=== PATIENT | female | born 1955 | race Caucasian/White ===

== ENCOUNTER → 2019-10-19 16:31 | Outpatient (CLI) | payer OTHER, SELFPAY ==
[2019-10-19 17:18] LABS: Add Manual Diff / Slide Review NO; Basophils Absolute Auto 100 /uL (0-100); Basophils Percent Auto 1.8 % (0-2); Eosinophils Absolute Auto 300 /uL (0-450); Hematocrit 41.1 % (36-46); Hemoglobin 13.9 g/dL (12.0-16.0); Lymphocytes Absolute Auto 1400 /uL (1100-4500); Mean Corpuscular HGB Conc 33.7 % (30-36); Mean Corpuscular Hemoglobin 33.9 PG (26-34); Mean Corpuscular Volume 100.5 fL (80-100); Monocytes Absolute Auto 900 /uL (0-900); Monocytes Percent Auto 14.1 % (3-14); Neutrophils Absolute Auto 3700 /uL (1500-7000); Neutrophils Percent Auto 58.1 % (50-75); Platelet Count 329 X10^3/uL (150-400); Red Blood Cell Count 4.09 X10^6/uL (4.0-5.2); Red Cell Distribution Width 13.6 % (11.6-14.8); White Blood Cell Count 6.4 X10^3/uL (4.5-11.0)
[2019-10-19 17:40] LABS: Erythrocyte Sedimentation Rate 13 MM/HR (0-20)
[2019-10-19 17:48] LABS: Alanine Aminotransferase 25 IU/L (<35); Albumin 4.6 g/dL (3.5-5.0); Albumin Globulin Ratio 1.4 (1.0-2.8); Alkaline Phosphatase 49 U/L (38-126); Aspartate Aminotransferase 36 IU/L (14-36); BUN Creatinine Ratio 21.7 (6-22); Bilirubin Total 0.3 mg/dL (0.2-1.3); Blood Urea Nitrogen 13 mg/dL (7-17); Calcium 10.3 mg/dL (8.4-10.2); Carbon Dioxide 29 mmol/L (22-32); Chloride 100 mmol/L (98-107); Estimated Glomerular Filt Rate > 60.0 mL/min (>60); Globulin 3.3 g/dL (1.7-4.1); Glucose 99 mg/dL (80-110); HEMOLYSIS < 15 (0-50); Potassium 4.9 mmol/L (3.4-5.1); Sodium 139 mmol/L (137-145); Total Protein 7.9 g/dL (6.3-8.2)
[2019-10-19 18:18] LABS: Thyroid Stimulating Hormone 1.11 uIU/mL (0.47-4.68)
[2019-10-19 18:53] LABS: Folate 6.5 ng/mL (2.76-20.0)
== END ==
PROVIDERS: PCP Family Medicine; Visit Provider Family Medicine
DX: M13.0 Polyarthritis, unspecified (principal)
CPT/HCPCS: 36415; 80053; 82746; 84443; 85025; 85651

== ENCOUNTER → 2019-10-27 08:35 | Outpatient (CLI) | payer OTHER, SELFPAY ==
[2019-10-27 09:48] LABS: Add Manual Diff / Slide Review NO; Basophils Absolute Auto 200 /uL (0-100); Basophils Percent Auto 2.5 % (0-2); Eosinophils Absolute Auto 300 /uL (0-450); Eosinophils Percent Auto 5.3 % (2-4); Hematocrit 41.2 % (36-46); Lymphocytes Absolute Auto 1500 /uL (1100-4500); Lymphocytes Percent Auto 24.4 % (25-40); Mean Corpuscular HGB Conc 34.1 % (30-36); Mean Corpuscular Volume 99.8 fL (80-100); Monocytes Absolute Auto 900 /uL (0-900); Monocytes Percent Auto 14.8 % (3-14); Neutrophils Absolute Auto 3300 /uL (1500-7000); Platelet Count 333 X10^3/uL (150-400); Red Blood Cell Count 4.12 X10^6/uL (4.0-5.2); Red Cell Distribution Width 13.7 % (11.6-14.8); White Blood Cell Count 6.3 X10^3/uL (4.5-11.0)
[2019-10-27 11:28] LABS: Folate > 20.0 ng/mL (2.76-20.0); Vitamin B12 422 pg/mL (239-931)
== END ==
PROVIDERS: PCP Family Medicine; Referring Provider Family Medicine; Visit Provider Family Medicine
DX: F10.20 Alcohol dependence, uncomplicated (principal)
CPT/HCPCS: 36415; 82607; 82746; 85025

== ENCOUNTER → 2019-11-17 08:27 | Outpatient (CLI) | payer OTHER, SELFPAY ==
[2019-11-17 09:39] LABS: Add Manual Diff / Slide Review NO; Basophils Absolute Auto 100 /uL (0-100); Basophils Percent Auto 2.4 % (0-2); Eosinophils Absolute Auto 400 /uL (0-450); Eosinophils Percent Auto 6.7 % (2-4); Hematocrit 41.7 % (36-46); Hemoglobin 14.2 g/dL (12.0-16.0); Lymphocytes Absolute Auto 1400 /uL (1100-4500); Lymphocytes Percent Auto 23.4 % (25-40); Mean Corpuscular Hemoglobin 34.4 PG (26-34); Mean Corpuscular Volume 101.1 fL (80-100); Monocytes Absolute Auto 700 /uL (0-900); Monocytes Percent Auto 11.7 % (3-14); Neutrophils Absolute Auto 3300 /uL (1500-7000); Neutrophils Percent Auto 55.8 % (50-75); Platelet Count 311 X10^3/uL (150-400); Red Blood Cell Count 4.13 X10^6/uL (4.0-5.2); Red Cell Distribution Width 13.1 % (11.6-14.8); White Blood Cell Count 5.9 X10^3/uL (4.5-11.0)
[2019-11-17 10:07] LABS: Alanine Aminotransferase 25 IU/L (<35); Albumin Globulin Ratio 1.4 (1.0-2.8); Alkaline Phosphatase 46 U/L (38-126); Aspartate Aminotransferase 39 IU/L (14-36); Bilirubin Total 0.6 mg/dL (0.2-1.3); Blood Urea Nitrogen 9 mg/dL (7-17); Carbon Dioxide 29 mmol/L (22-32); Chloride 95 mmol/L (98-107); Estimated Glomerular Filt Rate > 60.0 mL/min (>60); Globulin 3.5 g/dL (1.7-4.1); Glucose 89 mg/dL (80-110); HEMOLYSIS < 15 (0-50); Phosphorous 3.1 mg/dL (2.8-4.1); Potassium 4.3 mmol/L (3.4-5.1); Sodium 135 mmol/L (137-145); Total Protein 8.5 g/dL (6.3-8.2)
[2019-11-19 15:23] LABS: Parathyroid Hormone Int 18 pg/mL (14-64)
[2019-11-22 12:59] LABS: Albumin 4.8 g/dL (3.8-4.8); Alpha 1 Globulin 0.3 g/dL (0.2-0.3); Alpha 2 Globulin 0.7 g/dL (0.5-0.9); Beta 1 Globulin 0.4 g/dL (0.4-0.6); Protein, Total 7.7 g/dL (6.1-8.1)
--- NOTE | 2019-12-15 11:54 | ONC.MSW ---
Description: New Referral Navigation Activity: Reviewed the referral for acuity, medical status and immediate needs. Forwarded to scheduling for next available new pt appt. time.
== END ==
PROVIDERS: PCP Family Medicine; Referring Provider Family Medicine; Visit Provider Family Medicine
DX: E83.52 Hypercalcemia (principal)
CPT/HCPCS: 36415; 80053; 83970; 84100; 84155; 84165; 85025

== ENCOUNTER → 2020-02-21 15:00 | Oncology outpatient (ONC) | payer OTHER, SELFPAY ==
--- NOTE | 2019-12-20 14:24 | ONC.CONS ---
History of Present Illness - Data of Consult Patient: new to practice Consult date: 12/20/19 Requesting Physician: Phyllis Yoo MD Primary Care Provider: Phyllis Yoo MD - Consult Narrative Reason for consult: Elevated Basophils Narrative: Mlila Cohen is a 63 year old female. 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 Her had full body rashes with pruritis and skin shedding. She has been on treatment with methotrexate 2.5 mg 3# weekly for the past 5 years. She is also getting light therapy. She said that the therapy has been effective. According to patient, annual check up in Sep 2019 showed WBC 6.4, H/H 13.9/41.1, MCV 100.5, PLT 329, absolute basophil 100. Repeat test on 10/27/2019 showed WBC 6.3, H/H 14/41.2, PLT 333, absolute basophil 200. Recent test on 11/17/2019 showed WBC 5.9, H/H 14.2/41.7, PLT 311, absolute basophil 100. noted basophis Clinically,s she said she feels great. She reports no fever, no chills, no shortness of breath, no chest pain, no n/v, and no diarrhea or constipation. Her weight has been stable. She has osteoarthritis. Her skin rashes are stable. She denies any headache. CC: Ashvin Aguirre MD Home Medications and Allergies Home Medications Medication Instructions Recorded Confirmed Type albuterol sulfate [Ventolin HFA] 2 puff INHALATION Q4-6H PRN 12/20/19 12/20/19 History beclomethasone dipropionate [Qvar 2 inh INHALATION BID 12/20/19 12/20/19 History RediHaler] benazepril 20 mg PO DAILY 12/20/19 12/20/19 History bupropion HCl [Wellbutrin XL] 150 mg PO QAM 12/20/19 12/20/19 History buspirone 30 mg BID 12/20/19 12/20/19 History diltiazem HCl 360 mg PO DAILY 12/20/19 12/20/19 History duloxetine [Cymbalta] 30 mg PO DAILY 12/20/19 12/20/19 History fexofenadine 180 mg PO DAILY 12/20/19 12/20/19 History folic acid 1 mg PO DAILY 12/20/19 12/20/19 History hydrochlorothiazide 12.5 mg PO DAILY 12/20/19 12/20/19 History hydrocortisone 1 applic TOPICAL BID PRN 12/20/19 12/20/19 History levothyroxine 88 mcg PO DAILY 12/20/19 12/20/19 History methotrexate sodium 7.5 mg PO QWEEK 12/20/19 12/20/19 History montelukast 10 mg PO DAILY 12/20/19 12/20/19 History olopatadine [Patanol] % OPHTHALMIC (EYE) 12/20/19 History ranitidine HCl 150 mg PO BID 12/20/19 12/20/19 History Allergies Allergy/AdvReac Type Severity Reaction Status Date / Time Aminoglycosides Allergy Intermediate Verified 12/20/19 15:12 gentamicin Allergy Intermediate Verified 12/20/19 15:12 Penicillins Allergy Intermediate Verified 12/20/19 15:12 pimecrolimus [From Elidel] Allergy Intermediate Verified 12/20/19 15:12 zolpidem [From Ambien] Allergy Intermediate Verified 12/20/19 15:12 Medical History - Medical, Surgical, Family History Medical History: Medical History (Last Updated 12/20/19 @ 15:06 by Ashvin Aguirre MD) Acid reflux Asthma Depression Hypothyroidism Surgical History: Surgical History (Last Updated 12/20/19 @ 15:07 by Ashvin Aguirre MD) H/O thyroidectomy H/O: hysterectomy Family History: Family History (Last Updated 12/20/19 @ 15:07 by Ashvin Aguirre MD) Other Adopted - Social History Smoking Status: Never smoker Substance Use Type: does not use Alcohol Intake: current (2-3 glass of wine at night) Review of Systems All systems PM: reviewed and no additional remarkable complaints except as stated (those mentioned in HPI.) Exam Vital signs: Last Vital Signs Temp 98.2 F 12/20/19 14:35 Pulse 69 12/20/19 14:35 Resp 18 12/20/19 14:35 BP 162/103 H 12/20/19 14:35 Pulse Ox 98 12/20/19 14:35 Narrative: ECOG 1 Vitals above reviewed Constitutional: WDWN, well nourished, and well groomed. NAD. Pleasant and cooperative. HEENT: NCAT, EOMI, PERRLA, anicteric sclera. Oral mucosa clean, no erythema, no ulcers noted on the oral mucosa, no enlargement of tonsils, and no pharynx secretions noted. Neck: Supple and symmetrical. No palpable thyromegaly or lymphadenopathy. No palpable masses. Respiratory: No use of accessory muscles, CTAB, no wheezes. Cardiovascular: RRR, S1 and S2 normal, no M/G/R. No edema of lower extremities. Abdomen: Soft, NTND, no palpable hepatosplenomegaly, no hernia. Lymphatic: no palpable palpable lymph nodes in the neck, axillae, or groins. Musculoskeletal: normal gait and station Skin: healing rashes noted. Neurological: CN II-XII grossly intact. No focal motor or sensory deficit. Psychiatric: Normal judgment and insight, AOx3, normal memory (recent and remote), normal mood and affect. 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 Clinically patient does not have any symptoms. Assessment: I explained to the patient that she has a very mild basophilia. Most of the absolute basophils have remained normal except on one occasion on October 27, 2019 when the absolute basophil was 200. Clinically patient does not have any symptoms for example enlarged lymph nodes, fever, or enlarged spleen. I explained to the patient that the mild basophil elevation probably reflect her possible allergic reactions. I do not think there are any clinical signs or symptoms to suggest underlying hematological malignancies especially leukemia. I talked with her that I will have her come back in about 3 months and will repeat the lab tests. She voiced understanding. Plan: RTC in 3 months, CBC, CMP, LDH
[2019-12-20 14:35] VITALS: BP 162/103; PULSE 69; RESP 18; TEMP 36.8; O2SAT 98
[2020-02-21 12:09] LABS: Add Manual Diff / Slide Review NO; Basophils Absolute Auto 0 /uL (0-100); Basophils Percent Auto 0.5 % (0-2); Eosinophils Absolute Auto 700 /uL (0-450); Eosinophils Percent Auto 10.3 % (2-4); Hematocrit 38.6 % (36-46); Hemoglobin 13.3 g/dL (12.0-16.0); Lymphocytes Absolute Auto 1300 /uL (1100-4500); Lymphocytes Percent Auto 19.8 % (25-40); Mean Corpuscular HGB Conc 34.5 % (30-36); Mean Corpuscular Hemoglobin 33.9 PG (26-34); Mean Corpuscular Volume 98.4 fL (80-100); Monocytes Absolute Auto 800 /uL (0-900); Monocytes Percent Auto 12.4 % (3-14); Neutrophils Absolute Auto 3800 /uL (1500-7000); Platelet Count 270 X10^3/uL (150-400); Red Blood Cell Count 3.93 X10^6/uL (4.0-5.2); Red Cell Distribution Width 12.9 % (11.6-14.8); White Blood Cell Count 6.6 X10^3/uL (4.5-11.0)
[2020-02-21 12:21] LABS: Alanine Aminotransferase 24 IU/L (<35); Albumin 4.6 g/dL (3.5-5.0); Albumin Globulin Ratio 1.4 (1.0-2.8); Alkaline Phosphatase 44 U/L (38-126); Aspartate Aminotransferase 35 IU/L (14-36); Bilirubin Total 0.5 mg/dL (0.2-1.3); Blood Urea Nitrogen 13 mg/dL (7-17); Calcium 9.6 mg/dL (8.4-10.2); Carbon Dioxide 27 mmol/L (22-32); Chloride 97 mmol/L (98-107); Estimated Glomerular Filt Rate > 60.0 mL/min (>60); Globulin 3.3 g/dL (1.7-4.1); Glucose 102 mg/dL (80-110); HEMOLYSIS < 15 (0-50); Lactate Dehydrogenase 479 U/L (313-618); Potassium 4.6 mmol/L (3.4-5.1); Sodium 133 mmol/L (137-145); Total Protein 7.9 g/dL (6.3-8.2)
--- NOTE | 2020-02-21 15:32 | P.PNONC_ITS ---
PN -Subjective Interval history: ID/CC: Milla is a 64-year-old female mild basophilia HPI: Milla Cohen is a 64 year old female. 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 Her had full body rashes with pruritis and skin shedding. She has been on treatment with methotrexate 2.5 mg 3# weekly for the past 5 years. She is also getting light therapy. She said that the therapy has been effective. According to patient, annual check up in Sep 2019 showed WBC 6.4, H/H 13.9/41.1, MCV 100.5, PLT 329, absolute basophil 100. Repeat test on 10/27/2019 showed WBC 6.3, H/H 14/41.2, PLT 333, absolute basophil 200. Recent test on 11/17/2019 showed WBC 5.9, H/H 14.2/41.7, PLT 311, absolute basophil 100. Thus, she was referred here for evaluation of basophilia. I saw the patient on 12/20/2019. Interval History: Since her previous visit, patient has been doing well without any new signs or symptoms. She said she did not have any new rashes. She did not have any wheezes or shortness of breath. She did not have any abdominal pain diarrhea or constipation. She presents here today for scheduled follow-up visit. - Patient Self-Reported Symptoms SR Skin issues: Dry skin SR Gastrointestinal issues: Heartburn - Additional ROS All systems PM: reviewed and no additional remarkable complaints except as stated Home Medications and Allergies Home Medications Medication Instructions Recorded Confirmed Type albuterol sulfate [Ventolin HFA] 2 puff INHALATION Q4-6H PRN 12/20/19 12/20/19 History beclomethasone dipropionate [Qvar 2 inh INHALATION BID 12/20/19 12/20/19 History RediHaler] benazepril 20 mg PO DAILY 12/20/19 12/20/19 History bupropion HCl [Wellbutrin XL] 150 mg PO QAM 12/20/19 12/20/19 History buspirone 30 mg BID 12/20/19 12/20/19 History diltiazem HCl 360 mg PO DAILY 12/20/19 12/20/19 History duloxetine [Cymbalta] 30 mg PO DAILY 12/20/19 12/20/19 History fexofenadine 180 mg PO DAILY 12/20/19 12/20/19 History folic acid 1 mg PO DAILY 12/20/19 12/20/19 History hydrochlorothiazide 12.5 mg PO DAILY 12/20/19 12/20/19 History hydrocortisone 1 applic TOPICAL BID PRN 12/20/19 12/20/19 History levothyroxine 88 mcg PO DAILY 12/20/19 12/20/19 History methotrexate sodium 7.5 mg PO QWEEK 12/20/19 12/20/19 History montelukast 10 mg PO DAILY 12/20/19 12/20/19 History olopatadine [Patanol] % OPHTHALMIC (EYE) 12/20/19 History ranitidine HCl 150 mg PO BID 12/20/19 12/20/19 History Allergies Allergy/AdvReac Type Severity Reaction Status Date / Time Aminoglycosides Allergy Intermediate Verified 12/20/19 15:12 gentamicin Allergy Intermediate Verified 12/20/19 15:12 Penicillins Allergy Intermediate Verified 12/20/19 15:12 pimecrolimus [From Elidel] Allergy Intermediate Verified 12/20/19 15:12 zolpidem [From Ambien] Allergy Intermediate Verified 12/20/19 15:12 Exam Vital signs: 02/21/20 15:44 Last Vital Signs Temp 98.2 F 12/20/19 14:35 Pulse 77 02/21/20 15:33 Resp 16 02/21/20 15:33 BP 164/112 H 02/21/20 15:33 Pulse Ox 99 02/21/20 15:33 Narrative: ECOG 1 Vitals above reviewed Constitutional: WDWN, well nourished, and well groomed. NAD. Pleasant and cooperative. HEENT: NCAT, EOMI, PERRLA, anicteric sclera. Respiratory: No use of accessory muscles, CTAB, no wheezes. Musculoskeletal: normal gait and station Skin: healing rashes noted. Neurological: CN II-XII grossly intact. No focal motor or sensory deficit. Psychiatric: Normal judgment and insight, AOx3, normal memory (recent and remote), normal mood and affect. Results - Labs Laboratory Last Values WBC 6.6 X10^3/uL (4.5-11.0) 02/21/20 11:58 RBC 3.93 X10^6/uL (4.0-5.2) L 02/21/20 11:58 Hgb 13.3 g/dL (12.0-16.0) 02/21/20 11:58 Hct 38.6 % (36-46) 02/21/20 11:58 MCV 98.4 fL (80-100) 02/21/20 11:58 MCH 33.9 PG (26-34) 02/21/20 11:58 MCHC 34.5 % (30-36) 02/21/20 11:58 RDW 12.9 % (11.6-14.8) 02/21/20 11:58 Plt Count 270 X10^3/uL (150-400) 02/21/20 11:58 Neut % (Auto) 57.0 % (50-75) 02/21/20 11:58 Lymph % (Auto) 19.8 % (25-40) L 02/21/20 11:58 [place] % (Auto) 12.4 % (3-14) 02/21/20 11:58 Eos % (Auto) 10.3 % (2-4) H 02/21/20 11:58 Baso % (Auto) 0.5 % (0-2) 02/21/20 11:58 Neut # (Auto) 3800 /uL (2644-7366) 02/21/20 11:58 Lymph # (Auto) 1300 /uL (4852-2630) 02/21/20 11:58 [place] # (Auto) 800 /uL (0-900) 02/21/20 11:58 Eos # (Auto) 700 /uL (0-450) H 02/21/20 11:58 Baso # (Auto) 0 /uL (0-100) 02/21/20 11:58 Sodium 133 mmol/L (137-145) L 02/21/20 11:58 Potassium 4.6 mmol/L (3.4-5.1) 02/21/20 11:58 Chloride 97 mmol/L (98-107) L 02/21/20 11:58 Carbon Dioxide 27 mmol/L (22-32) 02/21/20 11:58 BUN 13 mg/dL (7-17) 02/21/20 11:58 Creatinine 0.62 mg/dL (0.52-1.04) 02/21/20 11:58 Estimated GFR > 60.0 mL/min (>60) 02/21/20 11:58 BUN/Creatinine Ratio 21.0 (6-22) 02/21/20 11:58 Glucose 102 mg/dL (80-110) 02/21/20 11:58 Calcium 9.6 mg/dL (8.4-10.2) 02/21/20 11:58 Total Bilirubin 0.5 mg/dL (0.2-1.3) 02/21/20 11:58 AST 35 IU/L (14-36) 02/21/20 11:58 ALT 24 IU/L (<35) 02/21/20 11:58 Alkaline Phosphatase 44 U/L (38-126) 02/21/20 11:58 Lactate Dehydrogenase 479 U/L (313-618) 02/21/20 11:58 Total Protein 7.9 g/dL (6.3-8.2) 02/21/20 11:58 Albumin 4.6 g/dL (3.5-5.0) 02/21/20 11:58 Globulin 3.3 g/dL (1.7-4.1) 02/21/20 11:58 Albumin/Globulin Ratio 1.4 (1.0-2.8) 02/21/20 11:58 Assessment and Plan (1) Elevated basophil count Overview: 64-year-old female with dermatological problems currently on methotrexate was referred here for evaluation of mild basophilia. Clinically patient does not have any symptoms. Assessment: I reviewed the lab results from today. It showed that the white cell count 6.6, hemoglobin 13.3 with normal hematocrit 38.6 and normal platelet counts 270. In addition basophil count was 0. And the basophil percentage was 0.5%. Patient has an elevated eosinophils which probably reflects the allergy season. Patient has and normal LDH level of 479. I talked with her that I do not think she has any underlying hematological disorder. I talked with her that I will release her from our surface. If she has notices anything new, she needs to call us for follow-up visit. She voiced understanding. Plan: Patient will need to call for follow up visit if needed.
[2020-02-21 15:33] VITALS: BP 164/112; PULSE 77; RESP 16; O2SAT 99
== END ==
PROVIDERS: PCP Family Medicine; Referring Provider Family Medicine; Visit Provider Internal Medicine Hematology & Oncology
DX: D72.824 Basophilia (principal); L44.0 Pityriasis rubra pilaris
CPT/HCPCS: 36415; 80053; 83615; 85025; 99204; 99213; 99214

== ENCOUNTER → 2020-06-22 08:24 | Outpatient (CLI) | payer OTHER, SELFPAY ==
[2020-06-22 09:37] LABS: Add Manual Diff / Slide Review NO; Basophils Absolute Auto 100 /uL (0-100); Basophils Percent Auto 2.2 % (0-2); Eosinophils Absolute Auto 500 /uL (0-450); Eosinophils Percent Auto 8.7 % (2-4); Hematocrit 39.9 % (36-46); Hemoglobin 13.2 g/dL (12.0-16.0); Lymphocytes Absolute Auto 1200 /uL (1100-4500); Lymphocytes Percent Auto 22.1 % (25-40); Mean Corpuscular Hemoglobin 32.7 PG (26-34); Mean Corpuscular Volume 99.2 fL (80-100); Monocytes Absolute Auto 700 /uL (0-900); Monocytes Percent Auto 12.5 % (3-14); Neutrophils Absolute Auto 3000 /uL (1500-7000); Neutrophils Percent Auto 54.5 % (50-75); Platelet Count 310 X10^3/uL (150-400); Red Blood Cell Count 4.02 X10^6/uL (4.0-5.2); Red Cell Distribution Width 13.4 % (11.6-14.8); White Blood Cell Count 5.5 X10^3/uL (4.5-11.0)
[2020-06-22 10:06] LABS: Alanine Aminotransferase 22 IU/L (<35); Albumin 4.2 g/dL (3.5-5.0); Albumin Globulin Ratio 1.3 (1.0-2.8); Alkaline Phosphatase 43 U/L (38-126); Aspartate Aminotransferase 31 IU/L (14-36); BUN Creatinine Ratio 11.5 (6-22); Bilirubin Total 0.6 mg/dL (0.2-1.3); Blood Urea Nitrogen 7 mg/dL (7-17); Calcium 9.6 mg/dL (8.4-10.2); Carbon Dioxide 32 mmol/L (22-32); Chloride 98 mmol/L (98-107); Cholesterol 276 mg/dL (140-199); Estimated Glomerular Filt Rate > 60.0 mL/min (>60); Globulin 3.2 g/dL (1.7-4.1); Glucose 91 mg/dL (80-110); HEMOLYSIS < 15 (0-50); Potassium 4.3 mmol/L (3.4-5.1); Sodium 135 mmol/L (137-145); Total Protein 7.4 g/dL (6.3-8.2); Triglycerides 55 mg/dL (35-150)
[2020-06-22 10:13] LABS: HDL Cholesterol 156 mg/dL (40-60); LDL Cholesterol Calculated 109 mg/dL (<100)
== END ==
PROVIDERS: PCP Family Medicine; Referring Provider Registered Nurse; Visit Provider Registered Nurse
DX: L44.0 Pityriasis rubra pilaris (principal); Z79.899 Other long term (current) drug therapy
CPT/HCPCS: 36415; 80053; 80061; 85025

== ENCOUNTER → 2020-08-21 16:36 | Outpatient (CLI) | payer OTHER, SELFPAY ==
--- NOTE | 2020-08-21 16:38 | DI.MG.S_ITS ---
BILATERAL DIGITAL SCREENING MAMMOGRAM 3D/2D WITH CAD: 08/21/2020 CLINICAL: Routine screening. Comparison is made to exams dated: 04/20/2018 mammogram, 05/20/2016 mammogram, and 03/22/2013 mammogram - outside location. The tissue of both breasts is predominantly fatty. Current study was also evaluated with a Computer Aided Detection (CAD) system. There are benign diffuse calcifications in both breasts. No significant masses, calcifications, or other findings are seen in either breast. There has been no significant interval change. IMPRESSION: BENIGN There is no mammographic evidence of malignancy. A 1 year screening mammogram is recommended. This exam was interpreted at Station ID: [id number]. NOTE: For mammograms, a report in lay terms will be sent to the patient. Approximately 15% of breast malignancies will not be visualized mammographically. In the management of a palpable breast mass, a negative mammogram must not discourage biopsy of a clinically suspicious lesion. Electronically Signed By: Micah Wynn acr/ashrad:08/21/2020 17:50:37 letter sent: Normal Exam ACR BI-RADS Category 2: Benign Finding(s) [id number]
== END ==
PROVIDERS: PCP Family Medicine; Referring Provider Family Medicine; Visit Provider Family Medicine
DX: Z12.31 Encounter for screening mammogram for malignant neoplasm of breast (principal)
CPT/HCPCS: 77063; 77067

== ENCOUNTER → 2021-06-27 08:28 | Outpatient (CLI) | payer OTHER, SELFPAY ==
[2021-06-27 09:18] LABS: Add Manual Diff / Slide Review NO; Basophils Absolute Auto 200 /uL (0-100); Eosinophils Absolute Auto 500 /uL (0-450); Eosinophils Percent Auto 8.6 % (2-4); Hematocrit 42.1 % (36-46); Hemoglobin 13.9 g/dL (12.0-16.0); Lymphocytes Absolute Auto 1400 /uL (1100-4500); Lymphocytes Percent Auto 22.3 % (25-40); Mean Corpuscular Hemoglobin 33.8 PG (26-34); Mean Corpuscular Volume 102.4 fL (80-100); Monocytes Absolute Auto 800 /uL (0-900); Monocytes Percent Auto 13.8 % (3-14); Neutrophils Absolute Auto 3200 /uL (1500-7000); Neutrophils Percent Auto 52.3 % (50-75); Platelet Count 329 X10^3/uL (150-400); Red Blood Cell Count 4.11 X10^6/uL (4.0-5.2); Red Cell Distribution Width 13.7 % (11.6-14.8); White Blood Cell Count 6.1 X10^3/uL (4.5-11.0)
[2021-06-27 09:51] LABS: Alanine Aminotransferase 24 IU/L (<35); Albumin 4.6 g/dL (3.5-5.0); Albumin Globulin Ratio 1.6 (1.0-2.8); Alkaline Phosphatase 40 U/L (38-126); Aspartate Aminotransferase 33 IU/L (14-36); BUN Creatinine Ratio 13.6 (6-22); Bilirubin Total 0.4 mg/dL (0.2-1.3); Blood Urea Nitrogen 8 mg/dL (7-17); Carbon Dioxide 33 mmol/L (22-32); Chloride 99 mmol/L (98-107); Cholesterol 292 mg/dL (140-199); Estimated Glomerular Filt Rate > 60.0 mL/min (>60); Globulin 2.9 g/dL (1.7-4.1); Glucose 83 mg/dL (80-110); HEMOLYSIS < 15 (0-50); Potassium 4.4 mmol/L (3.4-5.1); Sodium 137 mmol/L (137-145); Total Protein 7.5 g/dL (6.3-8.2); Triglycerides 65 mg/dL (35-150)
[2021-06-27 10:04] LABS: Free T3, Triiodothyronine Free 3.88 pg/mL (2.77-5.27); Free T4, Direct Thyroxine 1.31 ng/dL (0.78-2.19)
[2021-06-27 10:11] LABS: LDL Cholesterol Calculated 116 mg/dL (<100)
[2021-06-27 10:12] LABS: HDL Cholesterol 163 mg/dL (40-60)
[2021-06-27 10:55] LABS: Folate > 20.0 ng/mL (2.76-20.0); Vitamin B12 456 pg/mL (239-931)
== END ==
PROVIDERS: PCP Family Medicine; Referring Provider Family Medicine; Visit Provider Family Medicine
DX: E03.9 Hypothyroidism, unspecified (principal); E78.5 Hyperlipidemia, unspecified
CPT/HCPCS: 36415; 80053; 80061; 82607; 82746; 84439; 84443; 84481; 85025

== ENCOUNTER → 2022-02-28 07:29 | Outpatient (CLI) | payer OTHER, SELFPAY ==
[2022-02-28 07:54] LABS: BUN Creatinine Ratio 13.1 (6-22); Blood Urea Nitrogen 8 mg/dL (7-17); Calcium 9.2 mg/dL (8.4-10.2); Carbon Dioxide 29 mmol/L (22-32); Chloride 100 mmol/L (98-107); Estimated Glomerular Filt Rate > 60 mL/min (>60); Glucose 98 mg/dL (80-110); HEMOLYSIS < 15 (0-50); Potassium 4.1 mmol/L (3.4-5.1); Sodium 135 mmol/L (137-145)
== END ==
PROVIDERS: PCP Family Medicine; Referring Provider Family Medicine; Visit Provider Family Medicine
DX: E16.2 Hypoglycemia, unspecified (principal); L40.9 Psoriasis, unspecified
CPT/HCPCS: 36415; 80048

== ENCOUNTER → 2022-04-18 08:04 | Outpatient (CLI) | payer OTHER, SELFPAY ==
[2022-04-18 08:31] LABS: Add Manual Diff / Slide Review NO; Basophils Absolute Auto 100 /uL (0-100); Eosinophils Absolute Auto 800 /uL (0-450); Eosinophils Percent Auto 10.9 % (2-4); Hematocrit 39.6 % (36-46); Hemoglobin 13.6 g/dL (12.0-16.0); Lymphocytes Absolute Auto 1300 /uL (1100-4500); Lymphocytes Percent Auto 18.1 % (25-40); Mean Corpuscular HGB Conc 34.3 % (30-36); Mean Corpuscular Hemoglobin 33.6 PG (26-34); Mean Corpuscular Volume 97.7 fL (80-100); Monocytes Absolute Auto 800 /uL (0-900); Monocytes Percent Auto 10.7 % (3-14); Neutrophils Absolute Auto 4400 /uL (1500-7000); Neutrophils Percent Auto 59.3 % (50-75); Platelet Count 269 X10^3/uL (150-400); Red Blood Cell Count 4.05 X10^6/uL (4.0-5.2); Red Cell Distribution Width 12.7 % (11.6-14.8); White Blood Cell Count 7.4 X10^3/uL (4.5-11.0)
[2022-04-18 09:28] LABS: Alanine Aminotransferase 18 IU/L (<35); Albumin 4.5 g/dL (3.5-5.0); Albumin Globulin Ratio 1.5 (1.0-2.8); Alkaline Phosphatase 49 U/L (38-126); Aspartate Aminotransferase 27 IU/L (14-36); BUN Creatinine Ratio 14.9 (6-22); Bilirubin Total 0.6 mg/dL (0.2-1.3); Blood Urea Nitrogen 10 mg/dL (7-17); Calcium 9.4 mg/dL (8.4-10.2); Carbon Dioxide 28 mmol/L (22-32); Chloride 100 mmol/L (98-107); Cholesterol 281 mg/dL (140-199); Estimated Glomerular Filt Rate > 60 mL/min (>60); Glucose 92 mg/dL (80-110); HEMOLYSIS < 15 (0-50); Potassium 4.1 mmol/L (3.4-5.1); Sodium 135 mmol/L (137-145); Total Protein 7.5 g/dL (6.3-8.2); Triglycerides 65 mg/dL (35-150)
[2022-04-18 09:39] LABS: HDL Cholesterol 143 mg/dL (40-60); LDL Cholesterol Calculated 125 mg/dL (<100)
[2022-04-18 09:42] LABS: Free T4, Direct Thyroxine 1.24 ng/dL (0.78-2.19)
[2022-04-18 09:56] LABS: Thyroid Stimulating Hormone 2.13 uIU/mL (0.47-4.68)
[2022-04-18 10:33] LABS: Folate > 20.0 ng/mL (2.76-20.0); Vitamin B12 388 pg/mL (239-931)
== END ==
PROVIDERS: PCP Family Medicine; Referring Provider Family Medicine; Visit Provider Family Medicine
DX: E03.9 Hypothyroidism, unspecified (principal); E78.2 Mixed hyperlipidemia; D75.89 Other specified diseases of blood and blood-forming organs; F10.10 Alcohol abuse, uncomplicated; I10 Essential (primary) hypertension
CPT/HCPCS: 36415; 80053; 80061; 82607; 82746; 84439; 84443; 84481; 85025

== ENCOUNTER → 2022-07-28 14:32 | Outpatient (CLI) | payer OTHER, SELFPAY ==
--- NOTE | 2022-07-28 14:33 | DI.MG.S_ITS ---
BILATERAL DIGITAL SCREENING MAMMOGRAM 3D/2D WITH CAD: 07/28/2022 CLINICAL: Routine screening. Comparison is made to exams dated: 08/21/2020 mammogram - [facility], 04/20/2018 mammogram, and 05/20/2016 mammogram - outside location. Both breasts are heterogeneously dense, which may obscure small masses (category c / 51-75% glandular tissue). Current study was also evaluated with a Computer Aided Detection (CAD) system. There are benign calcifications in both breasts. No significant masses, calcifications, or other findings are seen in either breast. There has been no significant interval change. IMPRESSION: BENIGN There is no mammographic evidence of malignancy. A 1 year screening mammogram is recommended. Based on the Tyrer Cuzick model (a risk assessment model) the patient's lifetime risk is 6.1% and her 10 year risk is 3.1%. According to the ACR, ACS, and NCCN guidelines, an annual breast MRI exam along with mammogram is recommended if the patient's lifetime risk is 20% or greater. This exam was interpreted at Station ID: [id number]. NOTE: For mammograms, a report in lay terms will be sent to the patient. Approximately 15% of breast malignancies will not be visualized mammographically. In the management of a palpable breast mass, a negative mammogram must not discourage biopsy of a clinically suspicious lesion. Electronically Signed By: Gera drew/sandi:07/28/2022 16:15:51 letter sent: Normal Exam ACR BI-RADS Category 2: Benign Finding(s) 3342F
== END ==
PROVIDERS: PCP Family Medicine; Referring Provider Family Medicine; Visit Provider Family Medicine
DX: Z12.31 Encounter for screening mammogram for malignant neoplasm of breast (principal)
CPT/HCPCS: 77063; 77067

== ENCOUNTER 2022-09-16 14:12 | Emergency (ER) | payer OTHER, SELFPAY ==
[2022-09-16 14:17] VITALS: BP 187/107; PULSE 86; RESP 16; TEMP 36.4; O2SAT 97; BMI 24.3
--- NOTE | 2022-09-16 14:25 | DI.RAD.S_ITS ---
PROCEDURE: XR CHEST 1V INDICATIONS: chest pain TECHNIQUE: One view of the chest was acquired. COMPARISON: None. FINDINGS: Surgical changes and devices: Lungs and pleura: Lungs are clear. No pleural effusions or pneumothorax. Mediastinum: Mediastinal contours appear normal. Heart size is normal. Bones and chest wall: No suspicious bony lesions. Overlying soft tissues appear unremarkable. IMPRESSION: No acute cardiopulmonary process demonstrated radiographically. Dictated by: Dane Rios M.D. on 09/16/2022 at 14:49 Approved by: Dane Rios M.D. on 09/16/2022 at 14:52
--- NOTE | 2022-09-16 14:30 | DI.CT.S_ITS ---
PROCEDURE: CT FACIAL BONES WO CON INDICATIONS: t-1 dizzy fall LAC head and nose, ETOH TECHNIQUE: Noncontrast 2.5 mm thick axial images acquired from the mandible through the frontal sinuses, with coronal and sagittal reformatting. For radiation dose reduction, the following was used: automated exposure control, adjustment of mA and/or kV according to patient size. COMPARISON: [facility], CT, CT HEAD/BRAIN WO CON, 09/16/2022, 14:51. FINDINGS: Image quality: Excellent. Bones and teeth: Orbital he are intact. Sinus he show no fracture or deformity. Nasal bones and septum are intact. Visualized portions of the mandible demonstrate no fractures or subluxation. Zygomatic arches are intact. Pterygoid plates are intact. Visualized portions of the skull base and auditory canals are intact. Degenerative changes are seen, including involving the visualized cervical spine and the temporomandibular joints. Sinuses: Paranasal sinuses are aerated, without fluid levels, mucosal thickening, or mucoceles. Mastoid air cells are aerated. Soft tissues: Mild soft tissue swelling is seen involving the bridge of the nose and the central forehead. No radiopaque foreign bodies are seen. Vascular: Visualized vascular structures appear normal in the absence of contrast. Bony vascular foramina and canals are intact. IMPRESSION: Negative for acute fracture. Dictated by: Troy Welsh M.D. on 09/16/2022 at 14:16 Approved by: Troy Welsh M.D. on 09/16/2022 at 14:18
[2022-09-16 14:40] LABS: Add Manual Diff / Slide Review NO; Basophils Absolute Auto 100 /uL (0-100); Basophils Percent Auto 1.2 % (0-2); Eosinophils Absolute Auto 200 /uL (0-450); Eosinophils Percent Auto 2.2 % (2-4); Hematocrit 40.5 % (36-46); Hemoglobin 13.8 g/dL (12.0-16.0); Lymphocytes Absolute Auto 1600 /uL (1100-4500); Lymphocytes Percent Auto 17.9 % (25-40); Mean Corpuscular HGB Conc 34.1 % (30-36); Mean Corpuscular Volume 99.7 fL (80-100); Monocytes Absolute Auto 1200 /uL (0-900); Monocytes Percent Auto 13.3 % (3-14); Neutrophils Absolute Auto 5800 /uL (1500-7000); Neutrophils Percent Auto 65.4 % (50-75); Platelet Count 303 X10^3/uL (150-400); Red Blood Cell Count 4.06 X10^6/uL (4.0-5.2); Red Cell Distribution Width 13.4 % (11.6-14.8); White Blood Cell Count 8.8 X10^3/uL (4.5-11.0)
--- NOTE | 2022-09-16 14:40 | DI.CT.S_ITS ---
PROCEDURE: CT HEAD/BRAIN WO CON INDICATIONS: t-1 dizzy, fall, unsteady gait, ETOH TECHNIQUE: Noncontrast 4.5 mm thick angled axial sections acquired from the foramen magnum to the vertex, with coronal and sagittal reformats. For radiation dose reduction, the following was used: automated exposure control, adjustment of mA and/or kV according to patient size. COMPARISON: [facility], CT, CT FACIAL BONES WO CON, 09/16/2022, 14:51. FINDINGS: Image quality: Excellent. CSF spaces: Basal cisterns are patent. No extra-axial fluid collections. The ventricles are symmetric in size and shape. Brain: No intracranial bleeds or masses. There is cerebral volume loss for age, with resultant ventricular and sulcal prominence. There are periventricular and deep white matter chronic small vessel ischemic changes. There is intracranial internal carotid artery atherosclerosis. Skull and face: Mild central forehead soft tissue swelling is seen. No associated calvarial fracture is seen. Calvarium and visualized facial bones appear intact, without suspicious lesions. Sinuses: Visualized sinuses and mastoids are clear. IMPRESSION: No acute intracranial hemorrhage is seen. No acute intracranial process is seen. Dictated by: Troy Welsh M.D. on 09/16/2022 at 14:18 Approved by: Troy Welsh M.D. on 09/16/2022 at 14:19
[2022-09-16 14:44] LABS: Prothrombin Time 11.5 SECONDS (10.1-12.7)
[2022-09-16 14:47] LABS: PTT Partial Thromboplastin Tim 30 SECONDS (26-36)
[2022-09-16 14:49] LABS: Alanine Aminotransferase 25 IU/L (<35); Albumin 4.3 g/dL (3.5-5.0); Albumin Globulin Ratio 1.1 (1.0-2.8); Alkaline Phosphatase 53 U/L (38-126); Aspartate Aminotransferase 33 IU/L (14-36); BUN Creatinine Ratio 10.2 (6-22); Bilirubin Total 0.6 mg/dL (0.2-1.3); Blood Urea Nitrogen 5 mg/dL (7-17); Calcium 8.8 mg/dL (8.4-10.2); Carbon Dioxide 24 mmol/L (22-32); Chloride 94 mmol/L (98-107); Creatine Kinase 160 U/L (30-135); Estimated Glomerular Filt Rate > 60 mL/min (>60); Globulin 3.8 g/dL (1.7-4.1); Glucose 104 mg/dL (80-110); HEMOLYSIS < 15 (0-50); Lipase 102 U/L (23-300); Magnesium 1.6 mg/dL (1.6-2.3); Potassium 3.9 mmol/L (3.4-5.1); Sodium 130 mmol/L (137-145); Total Protein 8.1 g/dL (6.3-8.2)
[2022-09-16 15:00] LABS: Troponin I < 0.012 ng/mL (0.01-0.034)
[2022-09-16 15:20] LABS: CKMB % Relative Index 0.9 % (1.5-5.0); Creatine Kinase MB 1.46 ng/mL (<2.37)
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
[2022-09-16 19:25] VITALS: BP 180/96; PULSE 82; O2SAT 98
== END 2022-09-16 19:43 | disposition home or self-care (01) ==
PROVIDERS: Emergency Medicine; Emergency Provider Emergency Medicine; PCP Family Medicine
DX: S01.81XA Laceration without foreign body of other part of head, initial encounter (principal); R07.9 Chest pain, unspecified; W18.00XA Striking against unspecified object with subsequent fall, initial encounter
CPT/HCPCS: 12013; 36415; 70450; 70486; 71045; 80053; 82550; 82553; 83690; 83735; 84484; 85025; 85610; 85730; 93005; 99284

== ENCOUNTER → 2023-04-02 08:44 | Outpatient (CLI) | payer OTHER, SELFPAY ==
[2023-04-02 10:18] LABS: Add Manual Diff / Slide Review NO; Basophils Absolute Auto 100 /uL (0-100); Basophils Percent Auto 1.4 % (0-2); Eosinophils Absolute Auto 300 /uL (0-450); Eosinophils Percent Auto 4.4 % (2-4); Hematocrit 39.4 % (36-46); Hemoglobin 13.5 g/dL (12.0-16.0); Lymphocytes Absolute Auto 1400 /uL (1100-4500); Mean Corpuscular HGB Conc 34.2 % (30-36); Mean Corpuscular Hemoglobin 32.6 PG (26-34); Mean Corpuscular Volume 95.4 fL (80-100); Monocytes Absolute Auto 800 /uL (0-900); Neutrophils Absolute Auto 3600 /uL (1500-7000); Neutrophils Percent Auto 59.2 % (50-75); Platelet Count 298 X10^3/uL (150-400); Red Blood Cell Count 4.13 X10^6/uL (4.0-5.2); Red Cell Distribution Width 12.9 % (11.6-14.8); White Blood Cell Count 6.1 X10^3/uL (4.5-11.0)
[2023-04-02 10:38] LABS: Alanine Aminotransferase 24 IU/L (<35); Albumin 4.4 g/dL (3.5-5.0); Albumin Globulin Ratio 1.2 (1.0-2.8); Alkaline Phosphatase 46 U/L (38-126); Aspartate Aminotransferase 33 IU/L (14-36); Bilirubin Total 0.5 mg/dL (0.2-1.3); Blood Urea Nitrogen 11 mg/dL (7-17); Calcium 9.7 mg/dL (8.4-10.2); Carbon Dioxide 32 mmol/L (22-32); Chloride 101 mmol/L (98-107); Cholesterol 307 mg/dL (140-199); Estimated Glomerular Filt Rate > 60 mL/min (>60); Globulin 3.6 g/dL (1.7-4.1); Glucose 98 mg/dL (80-110); HEMOLYSIS < 15 (0-50); Potassium 4.8 mmol/L (3.4-5.1); Sodium 137 mmol/L (137-145); Triglycerides 51 mg/dL (35-150)
[2023-04-02 11:05] LABS: HDL Cholesterol 131 mg/dL (40-60); LDL Cholesterol Calculated 166 mg/dL (<100)
[2023-04-02 11:07] LABS: TSH w/ Reflex to FT4 0.07 uIU/mL (0.47-4.68)
[2023-04-02 11:41] LABS: Folate > 20.0 ng/mL (2.76-20.0); Vitamin B12 488 pg/mL (239-931)
== END ==
PROVIDERS: PCP Family Medicine; Referring Provider Family Medicine; Visit Provider Family Medicine
DX: D75.89 Other specified diseases of blood and blood-forming organs (principal); E78.2 Mixed hyperlipidemia; F10.10 Alcohol abuse, uncomplicated; I10 Essential (primary) hypertension; E03.9 Hypothyroidism, unspecified
CPT/HCPCS: 36415; 80053; 80061; 82607; 82746; 84439; 84443; 85025

== ENCOUNTER → 2023-04-13 14:05 | Outpatient (CLI) | payer OTHER, SELFPAY ==
--- NOTE | 2023-04-13 14:06 | DI.RAD.S_ITS ---
PROCEDURE: XR DEXA AXIAL SKELETON INDICATIONS: monitor COMPARISON: None. FINDINGS: This blank DEXA report has been sent in error by the PACS system. The correct and complete report will be forthcoming in 1-2 days. Thank you for your patience and understanding. Dictated by: Ervin Granda M.D. on 04/13/2023 at 16:02 Approved by: Ervin Granda M.D. on 04/13/2023 at 16:02
--- NOTE | 2023-04-13 14:19 | DI.DEXA.S_ITS ---
Bone Density Report Name: LUIS GERONIMO Age: 67 Sex: Female Ethnicity: White Date of : 1955 Indication: postmenopausal; screening for osteoporosis; prior fracture; Referring Provider: SHINE HAWKINS Study: Bone densitometry was performed. Exam Date: April 13, 2023 Accession number: [id number] Bone Density: Region BMD T-score Z-score Classification AP Spine(L1, L2, L3) 0.695 -2.9 -1.1 Osteoporosis Femoral Neck (Left) 0.723 -1.1 0.5 Osteopenia Total Hip (Left) 0.860 -0.7 0.7 Normal Femoral Neck (Right) 0.695 -1.4 0.3 Osteopenia Total Hip (Right) 0.826 -0.9 0.4 Normal Total Hip Mean 0.843 -0.8 0.6 Normal World Health Organization criteria for BMD impression classify patients as: Normal (T-score at or above -1.0), Osteopenia (T-score between -1.0 and -2.5), or Osteoporosis (T-score at or below -2.5). 10-year Fracture Risk: FRAX not reported because: Some T-score for Spine Total or Hip Total or Femoral Neck at or below -2.5 Prior hip or vertebral fracture Impression: The patient has established osteoporosis, based on the Total Spine T-score and the existence of a prior fracture. The patient has risk factors, including: previous fracture. Discussion: HIGH RISK OF FRACTURE. BONE DENSITY IS UNDESIRABLY LOW AT ONE OR MORE SKELETAL SITES, CONSISTENT WITH POSTMENOPAUSAL OSTEOPOROSIS. This patient's lowest T-score, in a patient who has previously fractured, meets the World Health Organization's (WHO) criteria for severe osteoporosis. In untreated patients, the risk of osteoporotic fracture increases approximately two-fold for each 1.0 SD decrease in T-score. Low bone density is not the only risk factor for fracture; also consider factors such as patient's age, frailty or poor health, risk of falling, risk of injury, previous osteoporotic fracture, family history of osteoporosis, cigarette smoking, low body weight, etc. Not everyone with low bone mineral density has osteoporosis; osteomalacia and other metabolic bone disorders should also be considered. Patients who have osteoporosis should be evaluated for specific diseases and conditions (second lidia causes) that may cause or contribute to bone loss. The [place] [employer] of Clinical Endocrinologists (AACE) and National Osteoporosis Foundation (NOF) recommend pharmacologic intervention for all postmenopausal women with a previous hip or vertebral fracture and a T-score in this range. The patient should follow a healthful lifestyle (good nutrition with adequate calcium and vitamin D, and appropriate weight-bearing exercise). Follow-Up: Consider a repeat BMD and Vertebral Fracture Assessment (VFA) exam in 2 years or sooner if medically necessary, to reassess this patient's status. Reported by: MARY ALLEN M.D. on 04/13/2023 2:26:00 PM.
== END ==
PROVIDERS: PCP Family Medicine; Referring Provider Family Medicine; Visit Provider Family Medicine
DX: M81.0 Age-related osteoporosis without current pathological fracture (principal); Z13.820 Encounter for screening for osteoporosis; Z78.0 Asymptomatic menopausal state
CPT/HCPCS: 77080

== ENCOUNTER → 2023-06-30 11:26 | Outpatient (CLI) | payer OTHER, SELFPAY ==
--- NOTE | 2023-06-30 11:27 | DI.RAD.S_ITS ---
PROCEDURE: XR LUMBAR SPINE 2-3V INDICATIONS: back pain TECHNIQUE: 3 views of the lumbar spine were acquired. COMPARISON: None. FINDINGS: Bones: 5 [id number] vertebrae are present. There is normal bony alignment. No vertebral body compression fractures. No suspicious bony lesions. Mild to moderate, multilevel disc height loss. Facet arthrosis L4 through S1. Soft tissues: Overlying bowel gas pattern is normal. No suspicious soft tissue calcifications. IMPRESSION: No acute, displaced fracture or traumatic subluxation. [id number] degenerative disc disease. Dictated by: Tyron Horton M.D. on 06/30/2023 at 14:26 Approved by: Tyron Horton M.D. on 06/30/2023 at 14:30
== END ==
PROVIDERS: PCP Family Medicine; Referring Provider Internal Medicine; Visit Provider Internal Medicine
DX: M54.9 Dorsalgia, unspecified (principal); M51.36 Other intervertebral disc degeneration, lumbar region
CPT/HCPCS: 72100

== ENCOUNTER → 2023-07-31 09:47 | Outpatient (CLI) | payer OTHER, SELFPAY ==
[2023-07-31 11:21] LABS: Cholesterol 249 mg/dL (140-199); Triglycerides 61 mg/dL (35-150)
[2023-07-31 11:30] LABS: HDL Cholesterol 123 mg/dL (40-60); LDL Cholesterol Calculated 114 mg/dL (<100)
[2023-07-31 11:51] LABS: TSH w/ Reflex to FT4 0.82 uIU/mL (0.47-4.68)
== END ==
PROVIDERS: PCP Family Medicine; Referring Provider Family Medicine; Visit Provider Family Medicine
DX: E78.5 Hyperlipidemia, unspecified (principal); E03.9 Hypothyroidism, unspecified
CPT/HCPCS: 36415; 80061; 84443

== ENCOUNTER → 2023-09-23 11:23 | Outpatient (CLI) | payer OTHER, SELFPAY ==
--- NOTE | 2023-09-23 | DI.MG.S_ITS ---
BILATERAL DIGITAL SCREENING MAMMOGRAM 3D/2D WITH CAD: 09/23/2023 CLINICAL: Routine screening. Family history of breast cancer. Comparison is made to exams dated: 07/28/2022 mammogram, 08/21/2020 mammogram - [facility], and 04/20/2018 mammogram - outside location. Both breasts are heterogeneously dense, which may obscure small masses (category c / 51-75% glandular tissue). Current study was also evaluated with a Computer Aided Detection (CAD) system. There is a focal asymmetry in the right breast at 7 o'clock middle depth. No other significant masses, calcifications, or other findings are seen in either breast. IMPRESSION: INCOMPLETE: NEEDS ADDITIONAL IMAGING EVALUATION The focal asymmetry in the right breast is indeterminate. Additional views with possible ultrasound are recommended. Based on the Tyrer Cuzick model (a risk assessment model) the patient's lifetime risk is 5.8% and her 10 year risk is 3.0%. According to the ACR, ACS, and NCCN guidelines, an annual breast MRI exam along with mammogram is recommended if the patient's lifetime risk is 20% or greater. This exam was interpreted at Station ID: [id number]. NOTE: For mammograms, a report in lay terms will be sent to the patient. Approximately 15% of breast malignancies will not be visualized mammographically. In the management of a palpable breast mass, a negative mammogram must not discourage biopsy of a clinically suspicious lesion. Electronically Signed By: Mary benson/:09/23/2023 12:18:24 letter sent: Additional Imaging Needed ACR BI-RADS Category 0: Incomplete 3340F
== END ==
PROVIDERS: PCP Family Medicine; Referring Provider Family Medicine; Visit Provider Family Medicine
DX: Z12.31 Encounter for screening mammogram for malignant neoplasm of breast (principal); Z80.3 Family history of malignant neoplasm of breast
CPT/HCPCS: 77063; 77067

== ENCOUNTER → 2023-10-06 13:37 | Outpatient (CLI) | payer OTHER, SELFPAY ==
--- NOTE | 2023-10-06 13:38 | DI.MG.S_ITS ---
UNILATERAL RIGHT DIGITAL DIAGNOSTIC MAMMOGRAM 3D/2D WITH ADDITIONAL VIEWS: 10/06/2023 CLINICAL: Additional evaluation requested from prior study. Comparison is made to exams dated: 09/23/2023 mammogram, 07/28/2022 mammogram, and 08/21/2020 mammogram - [facility]. The right breast is heterogeneously dense, which may obscure small masses (category c / 51-75% glandular tissue). There is an oval focal asymmetry in the right breast at 9 o'clock middle depth. This is seen in additional views. No other significant masses or calcifications are seen in the breast. IMPRESSION: INCOMPLETE: NEEDS ADDITIONAL IMAGING EVALUATION The oval focal asymmetry in the right breast resembles a cyst or a lymph node and is indeterminate. An ultrasound is recommended for further evaluation and is scheduled to immediately follow this examination. Based on the Tyrer Cuzick model (a risk assessment model) the patient's lifetime risk is 5.8% and her 10 year risk is 3.0%. According to the ACR, ACS, and NCCN guidelines, an annual breast MRI exam along with mammogram is recommended if the patient's lifetime risk is 20% or greater. This exam was interpreted at Station ID: [id number]. NOTE: For mammograms, a report in lay terms will be sent to the patient. Approximately 15% of breast malignancies will not be visualized mammographically. In the management of a palpable breast mass, a negative mammogram must not discourage biopsy of a clinically suspicious lesion. Electronically Signed By: Joe Nettles M.D. aty/:10/06/2023 14:32:46 ACR BI-RADS Category 0: Incomplete 3340F
--- NOTE | 2023-10-06 13:38 | DI.US.S_ITS ---
ULTRASOUND OF RIGHT BREAST: 10/06/2023 CLINICAL: Patient returns today to evaluate a focal asymmetry in the right breast. Comparison is made to exams dated: 10/06/2023 mammogram, 09/23/2023 mammogram, 08/21/2020 mammogram, 07/28/2022 mammogram - [facility], 04/20/2018 mammogram, and 05/20/2016 mammogram - outside location. Color flow and real-time ultrasound of the right breast were performed. Olivia scale images of the real-time examination were reviewed. There is a benign 0.5 cm x 0.3 cm x 0.3 cm wider than tall oval cyst in the right breast at 9 o'clock middle depth 4 cm from the nipple. This oval cyst is anechoic with a well-defined boundary and posterior acoustic enhancement. This correlates with mammography findings. Color flow imaging demonstrates that there is no vascularity present. IMPRESSION: BENIGN There is no sonographic evidence of malignancy. The 0.5 cm x 0.3 cm x 0.3 cm wider than tall oval simple cyst in the right breast is benign. A 1 year screening mammogram is recommended. Findings and recommendations were conveyed to the patient during today's evaluation. This exam was interpreted at Station ID: [id number]. Electronically Signed By: Joe Nettles M.D. at/:10/06/2023 14:35:24 letter sent: Normal Exam Ultrasound BI-RADS: 2 Benign
== END ==
LOC: MAMMO 13:37
PROVIDERS: PCP Family Medicine; Referring Provider Family Medicine; Visit Provider Family Medicine
DX: R92.8 Other abnormal and inconclusive findings on diagnostic imaging of breast (principal); N60.01 Solitary cyst of right breast; R92.331 Mammographic heterogeneous density, right breast
CPT/HCPCS: 76642; 77065; G0279

== ENCOUNTER → 2023-11-11 08:54 | Outpatient (CLI) | payer OTHER, SELFPAY ==
[2023-11-11 10:13] LABS: Cholesterol 273 mg/dL (140-199); Triglycerides 40 mg/dL (35-150)
[2023-11-11 10:21] LABS: HDL Cholesterol 143 mg/dL (40-60); LDL Cholesterol Calculated 122 mg/dL (<100)
[2023-11-11 10:35] LABS: Creatinine Urine Random 64.4 mg/dL
[2023-11-11 10:39] LABS: Microalbumi Creatinin Ratio Ur 10.8 ug/mg CR (<30); Microalbumin Urine Random 0.7 mg/dL (0-1.6)
== END ==
PROVIDERS: PCP Family Medicine; Referring Provider Family Medicine; Visit Provider Family Medicine
DX: E78.5 Hyperlipidemia, unspecified (principal); I10 Essential (primary) hypertension
CPT/HCPCS: 36415; 80061; 82043; 82570

== ENCOUNTER → 2024-11-14 15:16 | Outpatient (CLI) | payer OTHER, SELFPAY ==
--- NOTE | 2024-11-14 15:17 | DI.MG.S_ITS ---
BILATERAL DIGITAL SCREENING MAMMOGRAM 3D/2D WITH CAD: 11/14/2024 CLINICAL: Routine screening. Comparison is made to exams dated: 09/23/2023 mammogram, 07/28/2022 mammogram, and 08/21/2020 mammogram - [facility]. The breasts are heterogeneously dense, which may obscure small masses (category c / 51-75% glandular tissue). Current study was also evaluated with a Computer Aided Detection (CAD) system. No significant masses, calcifications, or other findings are seen in either breast. There has been no significant interval change. IMPRESSION: NEGATIVE There is no mammographic evidence of malignancy. A 1 year screening mammogram is recommended. Based on the Tyrer Cuzick model (a risk assessment model) the patient's lifetime risk is 5.5% and her 10 year risk is 3.0%. According to the ACR, ACS, and NCCN guidelines, an annual breast MRI exam along with mammogram is recommended if the patient's lifetime risk is 20% or greater. This exam was interpreted at Station ID: [id number]. NOTE: For mammograms, a report in lay terms will be sent to the patient. Approximately 15% of breast malignancies will not be visualized mammographically. In the management of a palpable breast mass, a negative mammogram must not discourage biopsy of a clinically suspicious lesion. Electronically Signed By: Joe ramos/sandi:11/15/2024 07:26:59 letter sent: Normal Exam ACR BI-RADS Category 1: Negative
== END ==
PROVIDERS: PCP Family Medicine; Referring Provider Family Medicine; Visit Provider Family Medicine
DX: Z12.31 Encounter for screening mammogram for malignant neoplasm of breast (principal); R92.333 Mammographic heterogeneous density, bilateral breasts
CPT/HCPCS: 77063; 77067

== ENCOUNTER → 2025-07-18 08:30 | Outpatient (CLI) | payer OTHER, SELFPAY ==
[2025-07-18 09:28] LABS: Add Manual Diff / Slide Review NO; Hematocrit 40.6 % (36-46); Hemoglobin 13.8 g/dL (12.0-16.0); Lymphocytes Absolute Auto 1400 /uL (1100-4500); Mean Corpuscular HGB Conc 33.9 % (30-36); Mean Corpuscular Hemoglobin 32.8 PG (26-34); Mean Corpuscular Volume 96.8 fL (80-100); Platelet Count 339 X10^3/uL (150-400)
[2025-07-18 09:54] LABS: Alanine Aminotransferase 19 IU/L (<35); Albumin 4.4 g/dL (3.5-5.0); Albumin Globulin Ratio 1.3 (1.0-2.8); Alkaline Phosphatase 50 U/L (38-126); Blood Urea Nitrogen 7 mg/dL (7-17); Calcium 10.0 mg/dL (8.4-10.2); Carbon Dioxide 29 mmol/L (22-32); Chloride 101 mmol/L (98-107); Cholesterol 276 mg/dL (140-199); Estimated Glomerular Filt Rate > 60 mL/min (>60); Globulin 3.4 g/dL (1.7-4.1); Glucose 97 mg/dL (70-99); HEMOLYSIS < 15 (0-50); Potassium 4.6 mmol/L (3.4-5.1); Sodium 135 mmol/L (137-145); Total Protein 7.8 g/dL (6.3-8.2); Triglycerides 74 mg/dL (35-150); Uric Acid 4.3 mg/dL (2.5-6.2)
[2025-07-18 10:20] LABS: TSH w/ Reflex to FT4 1.19 uIU/mL (0.47-4.68)
[2025-07-18 10:39] LABS: HDL Cholesterol 140 mg/dL (40-60)
== END ==
PROVIDERS: PCP Family Medicine; Referring Provider Family Medicine; Visit Provider Family Medicine
DX: I10 Essential (primary) hypertension (principal); D75.89 Other specified diseases of blood and blood-forming organs; E78.2 Mixed hyperlipidemia; E03.9 Hypothyroidism, unspecified; M11.241 Other chondrocalcinosis, right hand
CPT/HCPCS: 36415; 80053; 80061; 84443; 84550; 85025

== ENCOUNTER → 2025-08-15 09:50 | Outpatient (CLI) | payer OTHER, SELFPAY ==
--- NOTE | 2025-08-15 09:52 | DI.RAD.S_ITS ---
PROCEDURE: XR DEXA AXIAL SKELETON INDICATIONS: osteoporosis COMPARISON: [facility], , XR DEXA AXIAL SKELETON, 04/13/2023, 14:19. FINDINGS: Lumbar Spine: Bone mineral density 0.653 g/cm2, T score -3.3. There is interval 6% decrease in total lumbar spine bone mineral density. Left Femoral Neck: Bone mineral density 0.716 g/cm2, T score -1.2. There is interval 0.9% decrease in left femoral neck bone mineral density. Left Hip: Bone mineral density 0.854 g/cm2, T score -0.7. There is interval 0.6% decrease in left total hip bone mineral density. Fracture Risk Calculation (when applicable): 10-year fracture risk of a major osteoporotic fracture 14 percent and of a hip fracture 1.6 percent. (T score greater or equal to -1.0 to: NORMAL) (T score from -1.1 to -2.4: OSTEOPENIA) (T score less than or equal to -2.5: OSTEOPOROSIS) IMPRESSION: Osteoporosis. Follow-up guidelines as follows: Osteoporosis: Consider a repeat DEXA and Vertebral Fracture Assessment (VFA) exam in 2 years or sooner if medically necessary, to reassess this patient's status. Osteopenia: Consider a repeat DEXA in 2-3 years to reassess this patient's status, or if there is a new clinical indication. Normal: Consider a repeat DEXA in 5 years or sooner, or if there is a new clinical indication. All treatment decisions require clinical judgment and consideration of individual patient factors, including patient preferences, comorbidities, previous drug use, risk factors not captured in the FRAX model (e.g., frailty, falls, vitamin D deficiency, increased bone turnover, interval significant decline in bone density ) and possible under- or over-estimation of fracture risk by FRAX. In addition, the NOF Guide recommends that FDA-approved medical therapies be considered in postmenopausal women and men age >= 50 years with a: * Hip or vertebral (clinical or morphometric) fracture * T-score of <=-2.5 at the spine or hip * Ten-year fracture probability by FRAX of >= 3% for hip fracture or >=20% for major osteoporotic fracture. Dictated by: Nick Azevedo M.D. on 08/15/2025 at 17:40 Approved by: Nick Azevedo M.D. on 08/15/2025 at 17:42
== END ==
LOC: RAD 09:51
PROVIDERS: PCP Family Medicine; Referring Provider Family Medicine; Visit Provider Family Medicine
DX: M81.0 Age-related osteoporosis without current pathological fracture (principal)
CPT/HCPCS: 77080